=== PATIENT | female | born 2000 | race Caucasian/White ===

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

== ENCOUNTER 2021-08-25 01:07 | Outpatient (CLI) | payer OTHER | END 2021-08-25 01:08 | disposition critical access hospital (66) | LOC: EMS 01:07 | DX: T76.21XA Adult sexual abuse, suspected, initial encounter (principal) | CPT/HCPCS: A0425; A0429 ==

== ENCOUNTER 2021-08-25 01:23 | Emergency (ER) | payer MEDICAID, OTHER ==
[2021-08-25 01:39] VITALS: BP 129/76
[2021-08-25 02:46] LABS: BILIRUBIN,URINE NEGATIVE (NEGATIVE); GLUCOSE, URINE (UA) NEGATIVE (NEGATIVE); KETONES,URINE (UA) NEGATIVE (NEGATIVE); LEUKOCYTE ESTERASE, URINE NEGATIVE (NEGATIVE); NITRITE,URINE NEGATIVE (NEGATIVE); OCCULT BLOOD,URINE NEGATIVE (NEGATIVE); PROTEIN,URINE NEGATIVE (NEGATIVE); UROBILINOGEN,URINE 0.2 (NORMAL) E.U./dL (NORMAL)
[2021-08-25] MEDS ORDERED: LIDOCAINE 1% 2 ML VIAL MC ONE (02:47)
[2021-08-25] MEDS ORDERED: AZITHROMYCIN 250 MG TABLET PO STA (02:47)
[2021-08-25] MEDS ORDERED: cefTRIAXone 500 MG VIAL IM STA (02:47)
[2021-08-25 02:48] LABS: CLARITY,URINE CLEAR (CLEAR); HCG UR QUAL NEGATIVE
[2021-08-25] MEDS ORDERED: metroNIDAZOLE 250 MG TABLET PO STA (02:48)
[2021-08-25] MEDS ORDERED: levonorgestreL 1.5 MG TABLET PO STA (02:48)
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
[2021-08-25] MEDS ORDERED: metroNIDAZOLE 250 MG TABLET PO ONE (04:18)
[2021-08-25 23:36] LABS: CHLAMYDIA TRACHOMATIS DNA NEGATIVE (NEGATIVE); NEISSERIA GONORRHOEAE DNA NEGATIVE (NEGATIVE); TRICHOMONAS VAGINALIS DNA NEGATIVE (NEGATIVE)
== END 2021-08-25 05:15 | disposition short-term general hospital (02) ==
LOC: EDUNIT# → EDBD → ED 01:23
DX: T76.21XA Adult sexual abuse, suspected, initial encounter (principal)
CPT/HCPCS: 81003; 81025; 87491; 87591; 87661; 96372; 99283; 99285; A9270; 81001; 87086

== ENCOUNTER 2023-04-02 14:59 | Outpatient (CLI) | payer OTHER | END 2023-04-02 15:00 | disposition critical access hospital (66) | LOC: EMS 14:59 | DX: R45.851 Suicidal ideations (principal) | CPT/HCPCS: A0425; A0429 ==

== ENCOUNTER 2023-04-02 15:19 | Emergency (ER) | payer MEDICAID, OTHER ==
[2023-04-02] MEDS: LORazepam 2 MG/ML VIAL IM STA (15:49)
[2023-04-02] MEDS: HALOPERIDOL 5 MG/ML VIAL IM STA (15:49)
[2023-04-02] MEDS: KETAMINE 500 MG/10 ML VIAL IM STA ×3 (16:00→19:33)
--- NOTE | 2023-04-02 16:00 | ED Physician Documentation ---
Restraint [id number] - Immediate Situation Face to Face Evaluation Date: 04/02/23 Face to Face Evaluation Time: 15:49 Restraint Classification: Violent, chemical Restraint Type: Locked extremity, Chemical - Patient's Reaction & Behaviors Safety: Physically safe, Non-compliant Verbal: Demanding, Screaming/Yelling, Swearing Harm: Potential harm to self, Potential harm to others Physical: Aggressive behavior, Fighting restraints, Spitting, Punching (Attempting to), Kicking Other: Attempting removal of medically necessary device(s) (Attempting removal of restraints) - Behavioral Condition Attitude: Other (OppositionalBelligerent) Behavior: Uncooperative, Belligerent, Agitated Orientation: Person, Place, Time (Grossly oriented to all but noncooperative with questioning.) Mood: Angry - Evaluation Pertinent History/Illicit Drugs/Medications/Results: Per friends history of EtOH and other substances. Patient does not endorse.
[2023-04-02] MEDS ORDERED: KETAMINE 500 MG/10 ML VIAL ONE (16:04)
[2023-04-02 16:12] LABS: BASOPHILS % (AUTO) 0.5 %; EOSINOPHILS % (AUTO) 0.7 %; HCT - HEMATOCRIT 42.5 % (37.0-47.0); HGB - HEMOGLOBIN 14.7 g/dL (12.0-16.0); LYMPHOCYTES # (AUTO) 1.4 10^3/uL (1.5-3.5); MEAN CORPUSCULAR HEMOGLOBIN 30.8 pg (27.0-31.0); MEAN CORPUSCULAR HGB CONC 34.6 g/dL (32.0-36.0); MEAN CORPUSCULAR VOLUME 88.9 fL (81.0-99.0); MEAN PLATELET VOLUME 11.6 fL (7.9-10.8); MONOCYTES # (AUTO) 0.5 10^3/uL (0.0-1.0); MONOCYTES % (AUTO) 8.1 %; NEUTROPHILS # (AUTO) 3.8 10^3/uL (1.5-6.6); NEUTROPHILS % (AUTO) 66.5 %; PLT - PLATELET COUNT 208 10^3/uL (130-450); RED BLOOD COUNT 4.78 10^6/uL (4.20-5.40); WHITE BLOOD COUNT 5.7 x10^3/uL (4.8-10.8)
[2023-04-02 16:21] LABS: MUDS CUTOFF CONCENTRATIONS CUTOFF CONC BELOW:
[2023-04-02 16:31] LABS: HCG UR QUAL NEGATIVE
[2023-04-02 16:40] LABS: ALBUMIN 5.1 g/dL (3.2-5.5); ALKALINE PHOSPHATASE 70 IU/L (42-121); ALT ALANINE AMINOTRANSFERASE 14 IU/L (10-60); AST ASPARTATE AMINOTRANSFERASE 16 IU/L (10-42); BUN - BLOOD UREA NITROGEN 12 mg/dL (6-20); CALCIUM 9.7 mg/dL (8.5-10.3); CARBON DIOXIDE - CO2 21 mmol/L (21-32); CHLORIDE 106 mmol/L (101-111); CREATININE 0.9 mg/dL (0.6-1.3); ETOH - ETHANOL < 10.0 mg/dL; GFR - MDRD 78 (>89); GLUCOSE 83 mg/dL (74-104); LIPASE 11 U/L (11-82); POTASSIUM 3.4 mmol/L (3.5-4.5); SODIUM 140 mmol/L (135-145); TOTAL PROTEIN 7.7 g/dL (6.4-8.9)
[2023-04-02 16:40] LABS: AMPHETAMINE SCREEN,URINE NEGATIVE (NEGATIVE); BARBITURATE SCREEN,UR NEGATIVE (NEGATIVE); BENZODIAZEPINES SCREEN, URINE NEGATIVE (NEGATIVE); COCAINE SCREEN URINE NEGATIVE (NEGATIVE); METHADONE SCREEN, URINE NEGATIVE (NEGATIVE); METHAMPHETAMINES SCREEN, URINE NEGATIVE (NEGATIVE); OPIATE SCREEN, URINE NEGATIVE (NEGATIVE); OXYCODONE SCREEN, URINE NEGATIVE (NEGATIVE); PROPOXYPHENE SCREEN, URINE NEGATIVE (NEGATIVE); THC CANNABINOID SCREEN, URINE POSITIVE (NEGATIVE); TRICYCLIC ANTIDEPRESSANT,URINE NEGATIVE (NEGATIVE)
[2023-04-02 16:53] LABS: THYROID STIMULATING HORMONE 1.22 uIU/mL (0.34-5.60)
--- NOTE | 2023-04-02 19:08 | ED Physician Documentation ---
Restraint [id number] - Immediate Situation Face to Face Evaluation Date: 04/02/23 Face to Face Evaluation Time: 17:51 Restraint Classification: Violent, physical, chemical - Patient's Reaction & Behaviors Safety: Physically safe Verbal: Demanding, Screaming/Yelling Harm: Potential harm to self, Potential harm to others, Verbalizes intent to harm Physical: Aggressive behavior, Fighting restraints, Kicking - Behavioral Condition Attitude: Other Behavior: Uncooperative (Oppositional), Belligerent, Agitated Orientation: Person (The patient is grossly oriented but refuses to answer orientation questions.) Mood: Other (Patient agitated) - Evaluation Pertinent History/Illicit Drugs/Medications/Results: Per friends history of EtOH and other substances. Patient does not endorse.
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
[2023-04-02 20:08] LABS: ACETAMINOPHEN 0.1 ug/mL
[2023-04-02 20:13] LABS: SALICYLATE < 1.5 mg/dL
--- NOTE | 2023-04-02 20:43 | ED Physician Documentation ---
ED Addendum - Addendum Addendum: 04/02/23 20:41 Patient endorsed to me by Dr. Houser at 7 PM shift change. I went ahead and put in a violent restraight order because at 7 PM patient was in four-point restraints and chemically sedated with ketamine and noted that chemical restraints and face to face had been documented but was alerted at this time that there needs to be a separate order for 4 point physical restraints. Physical restraints and chemical restraints were noted in the face to face from Dr. Houser. I completed additional face to face evaluation solely for physical restraints. (see face to face documentation). Plan to have DCR evaluate for involuntary psych hospitalization. 04/02/23 21:00 Note that RN Bebo will be taking patient out of physical restraints now since she is calm, sleeping in bed. 04/02/23 21:32 d/w DCR Yun - will see patient. 04/03/23 03:02 d/w Yun - patient was still mildly sedated s/p ketamine but forthcoming with information stating she has been depressed and her fiancee just broke up with her, prompting this ED visit and SI. patient states she did not really intend to kill herself and went to her friends for help. she is voluntary for inpatient psychiatric care as of now, but Yun recommends reconsulting DCR and make patient involuntary should she attempt to leave. Plan to endorse to incoming ED MD at 7am shift change pending SW
--- NOTE | 2023-04-02 20:44 | ED Physician Documentation ---
Restraint [id number] - Immediate Situation Face to Face Evaluation Date: 04/02/23 Face to Face Evaluation Time: 08:45 Restraint Classification: Violent, physical Restraint Type: Locked extremity - Patient's Reaction & Behaviors Safety: Physically safe - Behavioral Condition Attitude: Indifferent Behavior: Withdrawn Orientation: Non-responsive Mood: Labile - Evaluation Pertinent History/Illicit Drugs/Medications/Results: Per friends history of EtOH and other substances. Patient does not endorse. - Plan Need to Initiate/Renew Violent or Chemical Restraint: Will dc when safe
--- NOTE | 2023-04-03 10:08 | ED Physician Documentation ---
ED Addendum - Addendum Addendum: 04/03/23 10:07 Patient ran out of the emergency department. A code Kassidy was called. The patient was quickly located and brought back into the emergency department. Patient reassessed. No injuries. Patient continuing to await social work/DCR.
[2023-04-03] MEDS: ONDANSETRON ODT 4 MG TABLET TL STA (13:36)
[2023-04-03 14:18] VITALS: BP 115/70; O2SAT 97
--- NOTE | 2023-04-03 14:52 | ED Physician Documentation ---
ED Addendum - Addendum Addendum: 04/03/23 14:50 The DCR was reconsulted, Yuko came and evaluated the patient. Does not feel the patient needs to be involuntarily hospitalized at this time. She reached out to the voluntary follow-up team, Yun came and evaluated the patient. She will visit with the patient daily. The patient contracts for safety. Patient is not currently suicidal. We will have her follow-up with outpatient mental health tomorrow as scheduled. Patient counseled regarding signs and symptoms for which I believe and urgent re-evaluation would be necessary. Patient with good understanding of and agreement to plan and is comfortable going home at this time This document was made in part using voice recognition software. While efforts are made to proofread this document, sound alike and grammatical errors may occur. Departure - Departure Disposition: 01 Home, Self Care Clinical Impression: Suicidal ideation, Depressive disorder Condition: Stable Instructions: ED Depression Follow-Up: your,doctor tomorrow [Other] Comments: Please follow-up with [facility] as directed today by Yun. She will follow-up with you tomorrow. Please return if you worsen. Please refrain from alcohol. Crisis Line and is available to talk to someone [email or web address] is also available to chat with someone online if you prefer. There are also many resources on this website and apps for your phone to help with your mental health You can also text the word START to [phone] to chat with someome via text. Forms: PCP List, Activity restrictions
--- NOTE | 2023-04-03 20:56 | ED Physician Documentation ---
Restraint Resj-un-Dvax - Immediate Situation Face to Face Evaluation Date: 04/02/23 Face to Face Evaluation Time: 18:54 Restraint Classification: Violent, chemical w/ physical hold Restraint Type: Locked extremity, Chemical - Patient's Reaction & Behaviors Safety: Physically safe Verbal: Demanding, Screaming/Yelling, Swearing Harm: Potential harm to self, Potential harm to others, Verbalizes intent to harm Physical: Aggressive behavior, Fighting restraints - Behavioral Condition Attitude: Other (belligerent, agitated) Behavior: Uncooperative, Belligerent, Agitated Orientation: Person (Appears likely to be oriented, but does not cooperate with questioning of any kind.) Mood: Angry - Evaluation Current Medical Condition Relating to Need for Restraint: Involuntary psych hold, due to major depression with expressed suicidal plans, with high probability of suicide attempt. Pertinent History/Illicit Drugs/Medications/Results: Per friends history of EtOH and other substances. Patient does not endorse.
== END 2023-04-03 15:01 | disposition home or self-care (01) ==
LOC: EDUNIT# → ED 15:19
DX: R45.851 Suicidal ideations (principal); F32.A Depression, unspecified; Z20.822 Contact with and (suspected) exposure to COVID-19
CPT/HCPCS: 36415; 80053; 80306; 80307; 80320; 80329; 81025; 83690; 84443; 85025; 87635; 96372; 99284; 99285; J2060; Q0162; Q3014

== ENCOUNTER 2023-04-23 04:31 | Outpatient (CLI) | payer OTHER | END 2023-04-23 04:32 | disposition critical access hospital (66) | LOC: EMS 04:31 | DX: R68.89 Other general symptoms and signs (principal); F10.90 Alcohol use, unspecified, uncomplicated; Z73.3 Stress, not elsewhere classified; Z60.8 Other problems related to social environment | CPT/HCPCS: A0425; A0429 ==

== ENCOUNTER 2023-04-23 04:47 | Emergency (ER) | payer OTHER ==
[2023-04-23 04:54] VITALS: O2SAT 100
[2023-04-23] MEDS ORDERED: ACETAMINOPHEN 325 MG TABLET PO STA (05:07)
[2023-04-23 05:17] LABS: BASOPHILS % (AUTO) 0.5 %; EOSINOPHILS # (AUTO) 0.1 10^3/uL (0.0-0.7); EOSINOPHILS % (AUTO) 1.2 %; HGB - HEMOGLOBIN 14.2 g/dL (12.0-16.0); LYMPHOCYTES # (AUTO) 2.1 10^3/uL (1.5-3.5); LYMPHOCYTES % (AUTO) 27.6 %; MEAN CORPUSCULAR HEMOGLOBIN 30.7 pg (27.0-31.0); MEAN CORPUSCULAR HGB CONC 34.6 g/dL (32.0-36.0); MEAN CORPUSCULAR VOLUME 88.7 fL (81.0-99.0); MONOCYTES # (AUTO) 0.7 10^3/uL (0.0-1.0); MONOCYTES % (AUTO) 9.2 %; NEUTROPHILS # (AUTO) 4.7 10^3/uL (1.5-6.6); NEUTROPHILS % (AUTO) 61.2 %; PLT - PLATELET COUNT 243 10^3/uL (130-450); RED BLOOD COUNT 4.62 10^6/uL (4.20-5.40); RED CELL DISTRIBUTION WIDTH 11.8 % (12.0-15.0); WHITE BLOOD COUNT 7.7 x10^3/uL (4.8-10.8)
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
[2023-04-23 05:40] LABS: ALBUMIN/GLOBULIN RATIO 1.9 (1.0-2.2); ALKALINE PHOSPHATASE 70 IU/L (42-121); ALT ALANINE AMINOTRANSFERASE 9 IU/L (10-60); AST ASPARTATE AMINOTRANSFERASE 11 IU/L (10-42); BILIRUBIN,TOTAL 0.7 mg/dL (0.2-1.0); BUN - BLOOD UREA NITROGEN 9 mg/dL (6-20); CALCIUM 10.1 mg/dL (8.5-10.3); CARBON DIOXIDE - CO2 28 mmol/L (21-32); CHLORIDE 105 mmol/L (101-111); CREATININE 0.8 mg/dL (0.6-1.3); ETOH - ETHANOL < 10.0 mg/dL; GFR - MDRD 90 (>89); GLUCOSE 83 mg/dL (74-104); LIPASE 14 U/L (11-82); POTASSIUM 3.5 mmol/L (3.5-4.5); SODIUM 139 mmol/L (135-145); TOTAL PROTEIN 7.7 g/dL (6.4-8.9)
[2023-04-23 06:36] LABS: HCG UR QUAL NEGATIVE
[2023-04-23 07:04] VITALS: BP 128/74
--- NOTE | 2023-04-23 08:22 | XRAY Report ---
PROCEDURE: Knee 3 View LT INDICATIONS: fall/pain TECHNIQUE: 3 views of the knee(s) were acquired. COMPARISON: None. FINDINGS: Bones: No fractures or dislocations. No suspicious bony lesions. Soft tissues: No knee joint effusion. No suspicious soft tissue calcifications or masses. IMPRESSION: No acute bony abnormality. Findings are concordant with preliminary interpretation provided by [facility]. Reviewed by: Cong Virk MD on 04/23/2023 8:21 AM PST Approved by: Cong Virk MD on 04/23/2023 8:21 AM PST Station ID: [id number]
--- NOTE | 2023-04-23 08:26 | XRAY Report ---
PROCEDURE: Lumbar Spine 2 View INDICATIONS: fall/pain TECHNIQUE: 2 views of the lumbar spine were acquired. COMPARISON: None. FINDINGS: Bones: 5 [id number] vertebrae are present. There is normal bony alignment. No vertebral body compression fractures. No suspicious bony lesions. Soft tissues: Overlying bowel gas pattern is normal. No suspicious soft tissue calcifications. IMPRESSION: No acute compression fracture or spondylolisthesis in lumbar spine. Findings are concordant with preliminary interpretation provided by [facility]. Reviewed by: Cong Virk MD on 04/23/2023 8:24 AM PST Approved by: Cong Virk MD on 04/23/2023 8:24 AM PST Station ID: [id number]
== END 2023-04-23 06:58 | disposition home or self-care (01) ==
LOC: EDUNIT# → ED 04:47
DX: S89.92XA Unspecified injury of left lower leg, initial encounter (principal); W19.XXXA Unspecified fall, initial encounter; Y92.009 Unspecified place in unspecified non-institutional (private) residence as the place of occurrence of the external cause; F43.9 Reaction to severe stress, unspecified
CPT/HCPCS: 36415; 72100; 73562; 80053; 80320; 81025; 83690; 85025; 93005; 99283; 99284; A9270

== ENCOUNTER 2023-05-01 05:42 | Outpatient (CLI) | payer OTHER | END 2023-05-01 05:43 | disposition critical access hospital (66) | LOC: EMS 05:42 | DX: R45.851 Suicidal ideations (principal) | CPT/HCPCS: A0425; A0429 ==

== ENCOUNTER 2023-05-01 05:57 | Emergency (ER) | payer OTHER ==
--- NOTE | 2023-05-01 07:05 | ED Physician Documentation ---
PD HPI MHE - Stated complaint Stated Complaint: SI - Chief complaint Chief Complaint: MHE - History obtained from History obtained from: Patient - History of Present Illness Primary symptom: Suicidal ideation (The patient says she has a long standing history of suicidal thoughts. This overnight felt more intense but she did not take any action. She did not have a specific plan. Has been evaluated for similar in the past without residential or hospitalization.). No: Suicide attempt Timing - onset: How many days ago (1-2) Contributing factors: No: Substance abuse - ETOH, Substance abuse - drugs Similar symptoms before: Diagnosis (History of depression and perhaps bipolar. She states she was on medication as a teenager but none since adulthood and currently not getting any counseling. She has been trying to get into [facility] but no appointment has yet.) Recently seen: Emergency Dept Review of Systems Constitutional: denies: Fever, Chills Nose: denies: Rhinorrhea / runny nose, Congestion Throat: denies: Sore throat Respiratory: denies: Dyspnea, Cough GI: denies: Abdominal Pain, Vomiting, Diarrhea Neurologic: denies: Generalized weakness, Near syncope PD PAST MEDICAL HISTORY - Past Medical History Cardiovascular: None Respiratory: None Neuro: None Endocrine/Autoimmune: None GI: None LICENSED PHYSICAL THERAPY ASSISTANT: None : None HEENT: None Psych: Depression, ADD/ADHD Musculoskeletal: None Derm: None - Past Surgical History Past Surgical History: No /LICENSED PHYSICAL THERAPY ASSISTANT: section - Present Medications Home Medications: Ambulatory Orders Medication Instructions Recorded Confirmed No Known Home Medications 09/30/17 05/01/23 - Allergies Allergies/Adverse Reactions: Allergies Allergy/AdvReac Type Severity Reaction Status Date / Time No Known Drug Allergies Allergy Verified 05/01/23 06:18 - Social History Does the pt smoke?: No Smoking Status: Never smoker Does the pt drink ETOH?: No Does the pt have substance abuse?: No - Immunizations Immunizations are current?: Yes - POLST Patient has POLST: No PD ED PE NORMAL - Vitals Vital signs reviewed: Yes - General General: Alert and oriented X 3, No acute distress, Well developed/nourished - Neck Neck: Supple, no meningeal sign, No adenopathy - Cardiac Cardiac: RRR, No murmur - Respiratory Respiratory: Clear bilaterally - Derm Derm: Normal color, Warm and dry - Neuro Neuro: Alert and oriented X 3, No motor deficit, Normal speech Results - Vitals Vitals: Vital Signs - 24 hr 05/01/23 05/01/23 06:00 13:34 Temperature 36.9 C Heart Rate 72 60 Respiratory 16 18 Rate Blood Pressure 116/66 120/73 O2 Saturation 99 98 Oxygen O2 Source Room air - Labs Labs: Laboratory Tests 05/01/23 05/01/23 05/01/23 07:14 07:14 10:50 WBC 7.5 RBC 4.10 L Hgb 12.8 Hct 36.5 L MCV 89.0 MCH 31.2 H MCHC 35.1 RDW 11.9 L Plt Count 193 MPV 11.7 H Neut # (Auto) 4.9 Lymph # (Auto) 1.9 [place] # (Auto) 0.5 Eos # (Auto) 0.1 Baso # (Auto) 0.0 Absolute Nucleated RBC 0.00 Nucleated RBC % 0.0 Sodium 139 Potassium 3.4 L Chloride 107 Carbon Dioxide 26 Anion Gap 6.0 BUN 7 Creatinine 0.7 Estimated GFR (MDRD) 105 Glucose 104 Calcium 9.7 Magnesium 1.8 Total Bilirubin 0.4 AST 16 ALT 18 Alkaline Phosphatase 72 Total Creatine Kinase 58 Total Protein 6.7 Albumin 4.3 Globulin 2.4 Albumin/Globulin Ratio 1.8 Lipase 11 TSH 2.50 Urine Color YELLOW Urine Clarity CLEAR Urine pH 6.5 Ur Specific [place] 1.010 Urine Protein NEGATIVE Urine Glucose (UA) NEGATIVE Urine Ketones NEGATIVE Urine Occult Blood NEGATIVE Urine Nitrite NEGATIVE Urine Bilirubin NEGATIVE Urine Urobilinogen 0.2 (NORMAL) Ur Leukocyte Esterase SMALL H Urine RBC 0-5 Urine WBC 0-3 Ur Squamous Epith Cells MOD Squamous H Amorphous Sediment Marked Urine Bacteria Few Urine Mucus Few Strands Ur Microscopic Review INDICATED Urine Culture Comments NOT INDICATED Urine HCG, Qual NEGATIVE Salicylates < 1.5 Urine Opiates Screen NEGATIVE Ur Buprenorphine Scrn NEGATIVE Ur Oxycodone Screen NEGATIVE Urine Methadone Screen NEGATIVE Acetaminophen < 0.1 Ur Barbiturates Screen NEGATIVE Ur Tricyclics Screen NEGATIVE Ur Phencyclidine Scrn NEGATIVE Ur Amphetamine Screen NEGATIVE U Methamphetamines Scrn NEGATIVE U Benzodiazepines Scrn NEGATIVE Urine Cocaine Screen NEGATIVE U Cannabinoids Screen POSITIVE H Ur Drug Screen Comment CUTOFF CONC BELOW: Ethyl Alcohol < 10.0 PD Medical Decision Making - ED course Complexity details: considered differential, d/w patient, d/w senior financial consultant (Social Work talked with pt and crreated a saftety plan as well as arranging outpt new providers of counselors and prescribing provider. Pt not feeling suicidal at time of discharge. ) ED course: The patient states she had suicidal ideation without a particular plan did not take any actions. She is feeling less compelled at this point in describes a history of chronic suicidal vague ideation. No prior attempts. She has been evaluated in the ER couple of times with similar but not felt to meet admission criteria. At this point I do not get the sense of the patient being urgently at risk for self-harm. Will have social work talk with her and see if a safety plan is attainable and short-term follow-up for counseling. The patient is interested in medication perhaps and will need to be discussed. Departure - Departure Disposition: 01 Home, Self Care Clinical Impression: Depressed affect, Passive suicidal ideations Condition: Stable Record reviewed to determine appropriate education?: Yes Instructions: ED Depression Comments: Our social media marketing specialist did work with you to help set up phone counseling this afternoon and likely tomorrow as well as follow-up appointment in near future with [facility]. It sounds like you are also getting established with a primary care in [place] over the next 4 to 5 days. Follow-up with them. Return to the ER as needed or call the crisis line. Stay well-hydrated. Forms: PCP List Discharge Date/Time: 05/01/23 14:22
[2023-05-01 07:25] LABS: BASOPHILS % (AUTO) 0.5 %; EOSINOPHILS # (AUTO) 0.1 10^3/uL (0.0-0.7); EOSINOPHILS % (AUTO) 1.3 %; HCT - HEMATOCRIT 36.5 % (37.0-47.0); HGB - HEMOGLOBIN 12.8 g/dL (12.0-16.0); LYMPHOCYTES # (AUTO) 1.9 10^3/uL (1.5-3.5); LYMPHOCYTES % (AUTO) 25.5 %; MEAN CORPUSCULAR HEMOGLOBIN 31.2 pg (27.0-31.0); MEAN CORPUSCULAR HGB CONC 35.1 g/dL (32.0-36.0); MEAN PLATELET VOLUME 11.7 fL (7.9-10.8); MONOCYTES # (AUTO) 0.5 10^3/uL (0.0-1.0); MONOCYTES % (AUTO) 6.9 %; NEUTROPHILS # (AUTO) 4.9 10^3/uL (1.5-6.6); NEUTROPHILS % (AUTO) 64.7 %; PLT - PLATELET COUNT 193 10^3/uL (130-450); RED CELL DISTRIBUTION WIDTH 11.9 % (12.0-15.0); WHITE BLOOD COUNT 7.5 x10^3/uL (4.8-10.8)
[2023-05-01 07:47] LABS: ALBUMIN 4.3 g/dL (3.2-5.5); ALBUMIN/GLOBULIN RATIO 1.8 (1.0-2.2); ALKALINE PHOSPHATASE 72 IU/L (42-121); ALT ALANINE AMINOTRANSFERASE 18 IU/L (10-60); AST ASPARTATE AMINOTRANSFERASE 16 IU/L (10-42); BILIRUBIN,TOTAL 0.4 mg/dL (0.2-1.0); BUN - BLOOD UREA NITROGEN 7 mg/dL (6-20); CALCIUM 9.7 mg/dL (8.5-10.3); CARBON DIOXIDE - CO2 26 mmol/L (21-32); CHLORIDE 107 mmol/L (101-111); CK- CREATINE KINASE 58 IU/L (30-223); CREATININE 0.7 mg/dL (0.6-1.3); ETOH - ETHANOL < 10.0 mg/dL; GFR - MDRD 105 (>89); GLUCOSE 104 mg/dL (74-104); LIPASE 11 U/L (11-82); MAGNESIUM 1.8 mg/dL (1.7-2.3); POTASSIUM 3.4 mmol/L (3.5-4.5); SODIUM 139 mmol/L (135-145); TOTAL PROTEIN 6.7 g/dL (6.4-8.9)
[2023-05-01 07:55] LABS: SALICYLATE < 1.5 mg/dL
[2023-05-01 07:56] LABS: ACETAMINOPHEN < 0.1 ug/mL
[2023-05-01 10:59] LABS: BILIRUBIN,URINE NEGATIVE (NEGATIVE); CLARITY,URINE CLEAR (CLEAR); GLUCOSE, URINE (UA) NEGATIVE (NEGATIVE); HCG UR QUAL NEGATIVE; KETONES,URINE (UA) NEGATIVE (NEGATIVE); LEUKOCYTE ESTERASE, URINE SMALL (NEGATIVE); NITRITE,URINE NEGATIVE (NEGATIVE); OCCULT BLOOD,URINE NEGATIVE (NEGATIVE); PH,URINE 6.5 PH (5.0-7.5); PROTEIN,URINE NEGATIVE (NEGATIVE); UROBILINOGEN,URINE 0.2 (NORMAL) E.U./dL (NORMAL)
[2023-05-01 11:05] LABS: AMORPHOUS SEDIMENT,UR Marked /LPF; BACTERIA,URINE Few /HPF (None Seen); MUCUS,URINE Few Strands; RBC,URINE 0-5 /HPF (0-5); SQUAMOUS EPITHELIAL CELL,UR MOD Squamous (<= Few); WBC,URINE 0-3 /HPF (0-5)
[2023-05-01 11:21] LABS: AMPHETAMINE SCREEN,URINE NEGATIVE (NEGATIVE); BARBITURATE SCREEN,UR NEGATIVE (NEGATIVE); BENZODIAZEPINES SCREEN, URINE NEGATIVE (NEGATIVE); BUPRENORPHINE SCREEN, URINE NEGATIVE (NEGATIVE); COCAINE SCREEN URINE NEGATIVE (NEGATIVE); METHADONE SCREEN, URINE NEGATIVE (NEGATIVE); METHAMPHETAMINES SCREEN, URINE NEGATIVE (NEGATIVE); OPIATE SCREEN, URINE NEGATIVE (NEGATIVE); OXYCODONE SCREEN, URINE NEGATIVE (NEGATIVE); THC CANNABINOID SCREEN, URINE POSITIVE (NEGATIVE); TRICYCLIC ANTIDEPRESSANT,URINE NEGATIVE (NEGATIVE)
[2023-05-01 13:38] VITALS: BP 120/73; O2SAT 98
== END 2023-05-01 14:22 | disposition home or self-care (01) ==
LOC: EDUNIT# → ED 05:57
DX: R45.851 Suicidal ideations (principal); F31.9 Bipolar disorder, unspecified
CPT/HCPCS: 36415; 80053; 80306; 80307; 80320; 80329; 81001; 81003; 81025; 82550; 83690; 83735; 84443; 85025; 87086; 99283

== ENCOUNTER 2023-06-29 11:08 | Outpatient (CLI) | payer OTHER | END 2023-06-29 23:59 | disposition short-term general hospital (02) | LOC: EMS 11:08 | DX: T76.21XA Adult sexual abuse, suspected, initial encounter (principal); R10.2 Pelvic and perineal pain | CPT/HCPCS: A0425; A0429 ==

== ENCOUNTER 2023-08-27 01:42 | Emergency (ER) | payer OTHER ==
[2023-08-27 02:17] LABS: HCG UR QUAL NEGATIVE
[2023-08-27] MEDS: ACETAMINOPHEN 325 MG TABLET PO STA (02:19)
--- NOTE | 2023-08-27 02:54 | ED Physician Documentation ---
History of Present Illness - Stated complaint Stated Complaint: HEAD INJ - Chief complaint Chief Complaint: Trauma Hd/Nk - Additonal information Additional information: Patient 23-year-old female presenting to the emergency department chief complaint head injury. Struck in head while at work earlier this evening at [employer]. Is uncertain if she lost consciousness. Reports mild headache. Denies neck pain, blurred vision, double vision, nausea, vomiting. Does not take blood thinning medications. Review of Systems Constitutional: denies: Fever Eyes: denies: Loss of vision Ears: denies: Loss of hearing Nose: denies: Rhinorrhea / runny nose Throat: denies: Dental pain / toothache Cardiac: denies: Chest pain / pressure Respiratory: denies: Dyspnea GI: denies: Abdominal Pain : denies: Dysuria Skin: denies: Rash Musculoskeletal: denies: Neck pain PD PAST MEDICAL HISTORY - Past Medical History Past Medical History: Yes Cardiovascular: None Respiratory: None Neuro: None Endocrine/Autoimmune: None GI: None RUBBISH COLLECTION SUPERVISOR: None : None HEENT: None Psych: Depression, ADD/ADHD Musculoskeletal: None Derm: None - Past Surgical History Past Surgical History: No /RUBBISH COLLECTION SUPERVISOR: section - Present Medications Home Medications: Ambulatory Orders Medication Instructions Recorded Confirmed Ibuprofen [Motrin] 800 mg PO Q8H PRN #30 tablet 08/27/23 - Allergies Allergies/Adverse Reactions: Allergies Allergy/AdvReac Type Severity Reaction Status Date / Time No Known Drug Allergies Allergy Verified 08/27/23 01:52 - Social History Does the pt smoke?: No Smoking Status: Never smoker Does the pt drink ETOH?: No Does the pt have substance abuse?: No - Immunizations Immunizations are current?: Yes - POLST Patient has POLST: No PD ED PE NORMAL - General General: Alert and oriented X 3, No acute distress, Well developed/nourished - HEENT HEENT: Atraumatic, PERRL, EOMI, Ears normal, Moist mucous membranes - Neck Neck: Supple, no meningeal sign - Cardiac Cardiac: RRR - Respiratory Respiratory: No respiratory distress - Abdomen Abdomen: Normal bowel sounds - Female Female : Deferred - Rectal Rectal: Deferred - Back Back: No CVA TTP - Derm Derm: Normal color - Extremities Extremities: No deformity - Neuro Neuro: Alert and oriented X 3 Results - Vitals Vitals: Vital Signs - 24 hr 08/27/23 08/27/23 01:50 03:05 Temperature 36.0 C L Heart Rate 68 72 Respiratory 16 16 Rate Blood Pressure 107/92 H 110/89 H O2 Saturation 99 98 Oxygen O2 Source Room air - Labs Labs: Laboratory Tests 08/27/23 02:09 Urine HCG, Qual NEGATIVE PD Medical Decision Making - ED course Complexity details: reviewed results, d/w patient ED course: Patient 23-year-old female presenting to the emergency department with closed head injury. Afebrile, hemodynamically stable. A CT head nonacute per my interpretation. C-spine cleared Via Nexus criteria and. Patient given Tylenol in the emergency department. Monitored for several hours without new or worsening symptoms. Will discharge for follow-up with primary care. L&I paperwork completed while patient in the emergency department. Clear return precautions given. Departure - Departure Disposition: 01 Home, Self Care Clinical Impression: Closed head injury Qualifiers: Encounter type: initial encounter Qualified Code(s): S09.90XA - Unspecified injury of head, initial encounter Instructions: ED Head Injury Closed Prescriptions: Ibuprofen [Motrin] 800 mg PO Q8H PRN #30 tablet PRN Reason: PAIN &/OR FEVER Comments: Your head CT did not show any significant intracranial injury. Please get plenty of rest over the next few days. Please follow-up with your primary care doctor. If it anytime you have new or worsening symptoms please return. Forms: PCP List
[2023-08-27 03:15] VITALS: BP 110/89; O2SAT 98
--- NOTE | 2023-08-27 07:39 | CT Report ---
PROCEDURE: Head WO INDICATIONS: Head trauma, +LOC TECHNIQUE: Noncontrast 4.5 mm thick angled axial sections acquired from the foramen magnum to the vertex. For r adiation dose reduction, the following was used: automated exposure control, adjustment of mA and/or kV according to patient size. COMPARISON: None. FINDINGS: Image quality: Excellent. CSF spaces: Basal cisterns are patent. No extra-axial fluid collections. Ventricles are normal in size and shape. Brain: No midline shift. No intracranial masses or hemorrhage. Handley-white matter interface is norm al. Skull and face: Calvarium and visualized facial bones are intact, without suspicious lesions. Sinuses: Visualized sinuses and mastoids are clear. IMPRESSION: No acute intracranial pathology. Findings are concordant with preliminary interpretation provided by [facility]. Reviewed by: Jose Jiménez MD on 08/27/2023 7:38 AM PDT Approved by: Jose Jiménez MD on 08/27/2023 7:38 AM PDT Station ID: [id number]
== END 2023-08-27 03:10 | disposition home or self-care (01) ==
LOC: ED 01:42
DX: S09.90XA Unspecified injury of head, initial encounter (principal); W22.8XXA Striking against or struck by other objects, initial encounter; Y92.511 Restaurant or cafe as the place of occurrence of the external cause; Y99.0 Civilian activity done for income or pay
CPT/HCPCS: 1040M; 70450; 81025; 99284; A9270

== ENCOUNTER 2023-09-23 19:52 | Outpatient (CLI) | payer MEDICAID | END 2023-09-23 23:59 | disposition EMS.NT | LOC: EMS 19:52 | DX: R07.9 Chest pain, unspecified (principal); R45.89 Other symptoms and signs involving emotional state ==

== ENCOUNTER 2023-09-23 20:50 | Emergency (ER) | payer MEDICAID, OTHER ==
--- NOTE | 2023-09-23 21:03 | ED Physician Documentation ---
History of Present Illness - Stated complaint Stated Complaint: PANIC ATTACK - Chief complaint Chief Complaint: MHE - History obtained from History obtained from: Patient, EMS - History of Present Illness Timing: Today Pain level max: 3 Pain level now: 3 - Additonal information Additional information: 23-year-old female presents to the emergency department stating that she feels like she is having a panic attack. She states she is having chest pain. Nonradiating. Nothing makes it better or worse. Usually takes hydroxyzine but has not taken her hydroxyzine for the past 2 days. No treatment was given by EMS. Had a negative EKG with EMS. Patient denies any other medical history. 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 Review of Systems Constitutional: denies: Fever, Chills Nose: denies: Rhinorrhea / runny nose, Congestion Throat: denies: Sore throat Cardiac: denies: Palpitations Respiratory: denies: Dyspnea, Cough, Wheezing GI: denies: Nausea, Vomiting Skin: denies: Rash Musculoskeletal: denies: Neck pain, Back pain Neurologic: denies: Headache PD PAST MEDICAL HISTORY - Past Medical History Past Medical History: Yes Cardiovascular: None Respiratory: None Neuro: None Endocrine/Autoimmune: None GI: None ORAL SURGERY ASSISTANT: None : None HEENT: None Psych: Depression, Anxiety, ADD/ADHD Musculoskeletal: None Derm: None - Past Surgical History Past Surgical History: No /ORAL SURGERY ASSISTANT: section - Present Medications Home Medications: Ambulatory Orders Medication Instructions Recorded Confirmed Ibuprofen [Motrin] 800 mg PO Q8H PRN #30 tablet 08/27/23 hydrOXYzine HCL [Hydroxyzine HCl] 25 mg PO PRN PRN 09/23/23 09/23/23 - Allergies Allergies/Adverse Reactions: Allergies Allergy/AdvReac Type Severity Reaction Status Date / Time No Known Drug Allergies Allergy Verified 08/27/23 01:52 - Social History Does the pt smoke?: No Smoking Status: Never smoker Does the pt drink ETOH?: No Does the pt have substance abuse?: No - Immunizations Immunizations are current?: Yes - POLST Patient has POLST: No PD ED PE NORMAL - Vitals Vital signs reviewed: Yes - General General: Alert and oriented X 3, Other (Patient s hyperventilating. Tearful.) - HEENT HEENT: PERRL, Moist mucous membranes - Neck Neck: Supple, no meningeal sign - Cardiac Cardiac: RRR, Strong equal pulses - Respiratory Respiratory: No respiratory distress, Clear bilaterally - Abdomen Abdomen: Soft, Non tender, Non distended - Back Back: No CVA TTP, No spinal TTP - Derm Derm: Warm and dry - Extremities Extremities: No edema, No calf tenderness / cord - Neuro Neuro: Alert and oriented X 3 - Psych Psych: Other (Anxious, tearful) Results - Vitals Vitals: Vital Signs - 24 hr 09/23/23 09/23/23 09/23/23 20:57 21:00 22:02 Temperature 36.6 C Heart Rate 91 60 70 Respiratory 21 18 18 Rate Blood Pressure 108/95 H 127/60 112/70 O2 Saturation 100 98 98 Oxygen O2 Source Room air - EKG (time done) 2108 EKG releavant findings:: EKG personally interpreted by author of this note. Relevant findings are: Rate: Rate (enter#) (69) Rhythm: NSR [place]: Normal Intervals: Normal MS QRS: Normal Ischemia: Other (Borderline repull abnormalities, inverted T waves V4 through V6, III, aVF.) PD Medical Decision Making - ED course Complexity details: reviewed results, re-evaluated patient, considered differential, d/w patient ED course: Patient with what appears to be a panic attack. Given Ativan 1 mg IM. Symptoms resolved. 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 She states that her dog has been found as well. Patient states that she feels much better. The chest pain has resolved. She has hydroxyzine at home. Recommend that she follow-up with her doctor for further care. Patient counseled regarding signs and symptoms for which I believe and urgent re-evaluation would be necessary. Patient with good understanding of and agreement to plan and is comfortable going home at this time This document was made in part using voice recognition software. While efforts are made to proofread this document, sound alike and grammatical errors may occur. Departure - Departure Disposition: 01 Home, Self Care Clinical Impression: Panic attack Condition: Good Instructions: ED Panic Attack Follow-Up: your,doctor in 1 week [Other] Comments: Please continue your hydroxyzine at home. Please follow-up with your doctor for further care. Please return if you worsen. It appears that you had a panic attack tonight and you were given a dose of Ativan here. Forms: PCP List Discharge Date/Time: 09/23/23 22:02
[2023-09-23] MEDS: LORazepam 2 MG/ML VIAL IM STA (21:06)
[2023-09-23] MEDS: LORazepam 1 MG TABLET PO STA (21:07)
[2023-09-23 21:35] VITALS: O2SAT 98
[2023-09-23 22:03] VITALS: BP 112/70
== END 2023-09-23 22:02 | disposition home or self-care (01) ==
LOC: EDBD → ED 20:50
DX: F41.0 Panic disorder [episodic paroxysmal anxiety] (principal)
CPT/HCPCS: 93005; 96372; 99283; 99284; J2060

== ENCOUNTER 2023-10-25 05:30 | Emergency (ER) | payer MEDICAID ==
[2023-10-25 05:53] VITALS: O2SAT 99
--- NOTE | 2023-10-25 06:29 | ED Physician Documentation ---
PD HPI LOWER EXT INJURY - Stated complaint Stated Complaint: RIGHT ANKLE PAIN - Chief complaint Chief Complaint: Trauma Ext - History obtained from History obtained from: Patient - Additional information Additional information: HPI from patient. Patient c/o sudden onset right ankle pain, lateral aspect, when she tripped and fell at approximately 5 AM this morning. She says [place] f[place] (to whom she is getting in 2 days) when she tripped on a log. She denies any other injury. The pain is distinctly worse with movement and palpation as well as weight-bearing (able to minimally weight-bear due to pain exacerbation). Denies numbness, weakness. PD PAST MEDICAL HISTORY - Past Medical History Cardiovascular: None Respiratory: None Neuro: None Endocrine/Autoimmune: None GI: None CONTROL PANEL OPERATOR: None : None HEENT: None Psych: Depression, Anxiety, ADD/ADHD Musculoskeletal: None Derm: None - Past Surgical History Past Surgical History: No /CONTROL PANEL OPERATOR: section - Present Medications Home Medications: Ambulatory Orders Medication Instructions Recorded Confirmed Ibuprofen [Motrin] 800 mg PO Q8H PRN #30 tablet 08/27/23 hydrOXYzine HCL [Hydroxyzine HCl] 25 mg PO PRN PRN 09/23/23 09/23/23 HYDROcod/ACETAM 5/325 [[place] 5/325] 1 - 2 tablet PO Q6H PRN #14 tablet 10/25/23 Ibuprofen [Motrin] 600 mg PO Q6H PRN #20 tab 10/25/23 - Allergies Allergies/Adverse Reactions: Allergies Allergy/AdvReac Type Severity Reaction Status Date / Time No Known Drug Allergies Allergy Verified 10/25/23 05:47 - Social History Does the pt smoke?: No Smoking Status: Never smoker Does the pt drink ETOH?: No Does the pt have substance abuse?: No - Immunizations Immunizations are current?: Yes - POLST Patient has POLST: No PD ED PE NORMAL - Vitals Vital signs reviewed: Yes - General General: Alert and oriented X 3, No acute distress (NAD at rest but obvious painful discomfort with any movement or manipulation of the right ankle's lateral aspect), Well developed/nourished - Neuro Neuro: No sensory deficit (LTS intact right foot, toes), Other (brisk capillary refill in right toes) PD ED PE EXPANDED - Extremities Feet visual: 1 - bruising, swelling, tenderness 2 - bruising (faint), swelling (subtle), tenderness (mild) Results - Vitals Vitals: Vital Signs - 24 hr 10/25/23 10/25/23 05:42 07:57 Temperature 35.9 C L Heart Rate 76 67 Respiratory 20 18 Rate Blood Pressure 122/77 129/84 H O2 Saturation 99 99 Oxygen O2 Source Room air - Rads (name of study) right ankle xrays Relevant Findings:: Prelim report reviewed, See rad report PD Medical Decision Making - ED course Complexity details: considered differential, d/w patient ED course: Plain-film xrays are without acute abnormality; no evidence of fracture nor dislocation on these images. Diagnosis reviewed with patient (ankle sprain) along with prognosis and follow- up recommendations. She is placed in an air-cast splint. She says she has crutches that are hers and have been fitted for her and that she is familiar with proper crutch use (and thus not given crutches in ED). She is also given 2 tablets 5mg/325mg vicodin with rx for same. She is provided a work note. Departure - Departure Disposition: 01 Home, Self Care Clinical Impression: Ankle sprain Qualifiers: Encounter type: initial encounter Involved ligament of ankle: unspecified ligament Laterality: right Qualified Code(s): S93.401A - Sprain of unspecified ligament of right ankle, initial encounter Condition: Good Instructions: ED Sprain Ankle W X Ray Prescriptions: Ibuprofen [Motrin] 600 mg PO Q6H PRN #20 tab PRN Reason: Pain HYDROcod/ACETAM 5/325 [[place] 5/325] 1 - 2 tablet PO Q6H PRN #14 tablet PRN Reason: Pain Comments: Your pain should start improving in no more than 3-4 days, and should resolve within 7-10 days. If you do not have improvement/resolution within these timeframes, seek follow up with your primary care provider for reevaluation. I have electronically submitted prescriptions for Vicodin (narcotic/opiate pain medication) and ibuprofen to the [facility] pharmacy in [place]. I am prescribing a short course of narcotic pain medication for you. These are potentially dangerous and addictive medications that should be used carefully. These medications may constipate you. Take an verd-xsz-wkzkdhg stool softener (docusate) twice daily with plenty of water while taking these medications. If you go 24 hours without a bowel movement, take ibkv-ylf-lzlsisn miralax, per package instructions. Do not drink or drive while taking these medications. If you received narcotic or sedating medications while in the emergency department, do not drive for 24 hours. Store this medication in a safe, secure place and out of reach of children. It is a violation of federal law to give or sell this medication to another person or to use in a manner other than prescribed. The ED will not refill narcotic prescriptions, including prescriptions lost or stolen. To dispose of unwanted medications: 1. [facility] at [address] in [place] has a medication drop box. They accept prescription medications (in pill form) Friday through Friday 9:00 a.m. to 5:00 p.m. 2. The [facility] [employer] accepts prescription medications (in pill form only) for disposal year round. Call for more information. 3. Contact the [facility] for the next [facility] sponsored prescription drug collection event. , [phone], or [phone]; Forms: Activity restrictions Discharge Date/Time: 10/25/23 07:57
[2023-10-25] MEDS: IBUPROFEN 600 MG TABLET PO STA (07:30)
[2023-10-25] MEDS: HYDROcod/ACETAM 5/325 MG TABLET PO STA (07:31)
[2023-10-25 07:58] VITALS: BP 129/84
--- NOTE | 2023-10-25 08:07 | XRAY Report ---
PROCEDURE: Ankle 3+V RT INDICATIONS: R ankle pain TECHNIQUE: 3 views of the ankle were acquired. COMPARISON: None. FINDINGS: Bones: No fractures or dislocations. Ankle mortise is normally aligned. No suspicious bony lesions . Small plantar calcaneal enthesophyte. Soft tissues: No tibiotalar joint effusion. Achilles tendon appears normal. IMPRESSION: No acute bony abnormality. Small plantar calcaneal enthesophyte. If there is continued clinical concern for pathology or occult fracture, consider follow-up imaging w ith repeat radiographs in 10-14 days and possible advanced imaging (CT, MRI, bone scan) if symptoms p ersist. No significant discrepancy with initial interpretation by overnight radiologist. Reviewed by: Christopher Karimi MD on 10/25/2023 8:06 AM PDT Approved by: Christopher Karimi MD on 10/25/2023 8:06 AM PDT Station ID: [id number]
== END 2023-10-25 07:57 | disposition home or self-care (01) ==
LOC: ED 05:30
DX: S93.401A Sprain of unspecified ligament of right ankle, initial encounter (principal); W01.0XXA Fall on same level from slipping, tripping and stumbling without subsequent striking against object, initial encounter; Y93.02 Activity, running; Y92.832 Beach as the place of occurrence of the external cause; Z79.899 Other long term (current) drug therapy
CPT/HCPCS: 73610; 99283; 99284; A9270

== ENCOUNTER 2023-12-11 20:18 | Outpatient (CLI) | payer MEDICAID | END 2023-12-11 23:59 | disposition critical access hospital (66) | LOC: EMS 20:18 | DX: R41.82 Altered mental status, unspecified (principal); R25.8 Other abnormal involuntary movements; F12.90 Cannabis use, unspecified, uncomplicated | CPT/HCPCS: A0425; A0429; A0999 ==

== ENCOUNTER 2023-12-11 20:40 | Emergency (ER) | payer MEDICAID ==
[2023-12-11 21:08] LABS: BASOPHILS % (AUTO) 0.3 %; EOSINOPHILS # (AUTO) 0.1 10^3/uL (0.0-0.7); EOSINOPHILS % (AUTO) 2.1 %; HCT - HEMATOCRIT 37.2 % (37.0-47.0); HGB - HEMOGLOBIN 12.4 g/dL (12.0-16.0); LYMPHOCYTES # (AUTO) 1.8 10^3/uL (1.5-3.5); LYMPHOCYTES % (AUTO) 29.1 %; MEAN CORPUSCULAR HEMOGLOBIN 30.3 pg (27.0-31.0); MEAN CORPUSCULAR HGB CONC 33.3 g/dL (32.0-36.0); MEAN PLATELET VOLUME 11.7 fL (7.9-10.8); MONOCYTES # (AUTO) 0.4 10^3/uL (0.0-1.0); MONOCYTES % (AUTO) 7.2 %; NEUTROPHILS # (AUTO) 3.8 10^3/uL (1.5-6.6); NEUTROPHILS % (AUTO) 61.1 %; PLT - PLATELET COUNT 184 10^3/uL (130-450); RED BLOOD COUNT 4.09 10^6/uL (4.20-5.40); WHITE BLOOD COUNT 6.2 x10^3/uL (4.8-10.8)
[2023-12-11 21:25] LABS: ALBUMIN 4.6 g/dL (3.2-5.5); ALBUMIN/GLOBULIN RATIO 1.8 (1.0-2.2); ALKALINE PHOSPHATASE 72 IU/L (42-121); ALT ALANINE AMINOTRANSFERASE 12 IU/L (10-60); AST ASPARTATE AMINOTRANSFERASE 13 IU/L (10-42); BILIRUBIN,TOTAL 0.4 mg/dL (0.2-1.0); BUN - BLOOD UREA NITROGEN 9 mg/dL (6-20); CARBON DIOXIDE - CO2 29 mmol/L (21-32); CHLORIDE 104 mmol/L (101-111); CREATININE 0.9 mg/dL (0.6-1.3); ETOH - ETHANOL < 10.0 mg/dL; GFR - MDRD 78 (>89); GLUCOSE 99 mg/dL (74-104); LIPASE 19 U/L (11-82); MAGNESIUM 1.8 mg/dL (1.7-2.3); POTASSIUM 3.7 mmol/L (3.5-4.5); SODIUM 138 mmol/L (135-145); TOTAL PROTEIN 7.2 g/dL (6.4-8.9)
[2023-12-11 21:41] VITALS: BP 116/78; O2SAT 99
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
== END 2023-12-11 22:30 | disposition home or self-care (01) ==
LOC: EDUNIT# → ED 20:40
DX: H92.02 Otalgia, left ear (principal); F12.10 Cannabis abuse, uncomplicated; F31.9 Bipolar disorder, unspecified
CPT/HCPCS: 36415; 80053; 82077; 83690; 83735; 84443; 85025; 99283